=== PATIENT | female | born 1945 | race Asian ===

== ENCOUNTER → 2020-11-27 | Outpatient (CLI) | payer MEDICARE, BC ==
[~2020-11-27] MED LIST: MOBIC 7.5MG7.5 MG; PRAVACHOL10 MG; PROAIR HFA0.09 MG/AC; RT SPIRIVA18 MCG; ZANTAC 7575 MG
== END ==
LOC: COL.RAD 11-18 13:30
DX: Z12.2 Encounter for screening for malignant neoplasm of respiratory organs (principal); Z87.891 Personal history of nicotine dependence

== ENCOUNTER → 2022-01-14 | Outpatient (CLI) | payer MEDICARE, BC ==
[~2022-01-14] MED LIST changes: +ASPIRIN 81M81 MG/TA2 PO; +BACTROBAN15 GM TOP; +CALCIUM 600-D 61 TAB PO; +FARXIGA10 PO; +FLEXERIL 1010 MG/TAB PO; +IPRATROPIUM BROM3 M1 IH; +MULTI VITAMINS1 TAB PO; +PRAVACHOL 20MG20 MG PO; +PROAIR DIGIHAL90 MCG IH; +RT ADVAIR 228 DISKUS IH; +SPIRIVA RE2.5 MCG/Ac IH; +SYNTHROID 0.0.025 MG PO; +VITAMIN D 400400 IU PO; +ZANTAC-360 (FAM10 MG PO
== END ==
LOC: COL.RAD 10-21 08:30
DX: R91.1 Solitary pulmonary nodule (principal); J43.9 Emphysema, unspecified
CPT/HCPCS: Q9967

== ENCOUNTER 2023-10-02 08:12 | Outpatient (CLI) | payer MEDICARE, BC ==
[~2023-10-02] VITALS: Ht 160 cm; Wt 51.0 kg
[2023-10-02] VITALS (15 sets, daily range): BP systolic 106–149; BP diastolic 59–104; PULSE 58–76; TEMP 97.8
--- NOTE | 2023-10-02 08:41 | NUR ---
OFFERED TO PATIENT AGAIN THE [facility]. PATIENT DECLINES AND PREFERS TO USE [facility].
[2023-10-02] MEDS ORDERED: OMEGA-3 1000 MG1 CAP PO (08:51)
[2023-10-02] MEDS ORDERED: TRIAMCINOLONE A15 GM TP (08:58)
--- NOTE | 2023-10-02 11:22 | NUR ---
Spoke with patient's transportation who reports she will be here in 30 minutes.Will continue to monitor patient until her ride arrives.
--- NOTE | 2023-10-02 12:00 | NUR ---
Discharge instructions given to pt.Pt verbalizes understanding.Pt escorted out via wheelchair by this nurse.
== END 2023-10-02 12:19 ==
LOC: COL.RAD 08:12
DX: R91.8 Other nonspecific abnormal finding of lung field (principal); R93.89 Abnormal findings on diagnostic imaging of other specified body structures
CPT/HCPCS: 32106